=== PATIENT | female | born 2000 | race Caucasian/White ===

== ENCOUNTER → 2018-10-25 16:00 | Outpatient (CLI) | payer MEDICAID, SELFPAY ==
--- NOTE | 2018-10-25 16:07 | XR_ITS ---
XR foot LT min 3V HISTORY: ITS.REASON: LT FOOT PAIN ORDERING PHYSICIAN: Mj Marin MD PATIENT AGE: 18 years COMPARISON: None FINDINGS: No fracture or dislocation. No lytic or blastic change. There is normal mineralization.. The joint spaces are well-preserved. No significant degenerative/arthritic changes. No erosive changes evident. There is a small sclerotic focus involving the tuft of the distal phalanx medially at 4 mm and may be due to bone island IMPRESSION: No acute finding
== END ==
PROVIDERS: PCP Internal Medicine Adolescent Medicine; Visit Provider Internal Medicine Adolescent Medicine
DX: M79.672 Pain in left foot (principal)
CPT/HCPCS: 73630

== ENCOUNTER 2020-08-26 10:59 | Emergency (ER) | payer MEDICAID, SELFPAY ==
[2020-08-26 11:20] VITALS: BP 129/78; PULSE 108; RESP 19; TEMP 37.1; O2SAT 100; BMI 37.9
--- NOTE | 2020-08-26 12:00 | HMH.EDUTC ---
[facility] [place] Disposition Clinical Impression: Nasal congestion Disposition: Home, Self-Care Condition on Discharge: Good Instructions: DI for Nasal Congestion, Sore Throat Additional Instructions: *Monitor Temp, Over the counter Motrin or Tylenol as directed/as needed Tylenol every 4 hours and Motrin every 6 hours (as long as your family doctor has told you that you can take it) for fever or pain. and straight to ER if unable to lower temp less than 101.0 after medication given *Warm salt water gargles may help to soothe the throat *Throat Lozenges *Warm fluids like tea with honey may help to soothe the throat *Sleep elevated *Humidifier/Vaporizer *Flonase 2 sprays in each nostril daily but be aware that it may take 2-3 days before you notice improvement Your throat swab was sent for culture. Those results are typically sent to your primary care. Be sure to follow up in 2-3 days with your family doctor/primary care physician if no improvement so they can review those result and treat if necessary. If you don?t have a primary care doctor, I recommend you get one but in the mean time, you will have to return to a walk in clinic Follow up IMMEDIATELY for new or worsening symptoms or no Noticeable improvement over the next 48-72 hours. 911 for difficulty breathing or swallowing Prescriptions: Fluticasone Propionate [Flonase 50mcg nasal spray 16gm] 1 spr NS DAILY #1 bottle Transmission Status: Pending to [id number] Referrals: Mj Marin MD [Primary Care Provider] - As needed Time of Disposition: 12:48 Medical Decision Making - Primitivo Inquiry Pt receiving controlled substance: No Primitivo was queried for this patient: No Vital Signs: 08/26/20 11:20 Temperature 98.8 F Temperature Source Oral Pulse Rate [Right Brachial] 108 H Respiratory Rate 19 Blood Pressure [Right Arm] 129/78 Blood Pressure Mean [Right Arm] 95 Blood Pressure Source [Right Arm] Automatic Cuff Blood Pressure Position [Right Arm] Sitting 02 Sat by Pulse Oximetry 100 Oxygen Delivery Method Room Air - Lab Data Lab results reviewed: Yes: I reviewed the patient's lab results. [facility] [place] HPI - General Stated complaint: possible sinus infection Time Seen by Provider: 08/26/20 12:00 Mode of Arrival: Ambulatory Source of Information: Patient Limitations: No Limitations Description of Symptoms (Recalled from Triage Doc. by RN): PATIENT C/O SINUS PRESSURE AND HEADACHE SINCE THIS MORNING HEENT Symptoms (Recalled from RN notes): Yes Resp Symptoms (Recalled from RN notes): No Skin Symptoms (Recalled from RN notes): No MS Symptoms (Recalled from RN notes): No Functional Status (Recalled from RN notes): WNL - History of Present Illness Provider Complaint: Patient states that she has been having nasal congestion and has allergies States that for the last couple of days she has continued to have sinus congestion but this morning she is having some sinus pressure States that drainage from nose is clear and having sore scratchy throat - Related Data Home Medications Medication Instructions Recorded Confirmed Albuterol Sulfate [Albuterol 2 puff IH DAILYP PRN 08/26/20 08/26/20 Sulfate Hfa] Fexofenadine HCl [Yasmin 180 mg PO DAILY 08/26/20 08/26/20 Allergy] Montelukast Sodium [Singulair 10mg 10 mg PO PM 08/26/20 08/26/20 tablet] norgestimate-ethinyl estradioL 1 tab PO DAILY 08/26/20 08/26/20 [Tri-Sprintec Tablet] Previous Rx's Medication Instructions Recorded Fluticasone Propionate [Flonase 1 spr NS DAILY #1 bottle 08/26/20 50mcg nasal spray 16gm] Allergies Allergy/AdvReac Type Severity Reaction Status Date / Time ciprofloxacin Allergy Verified 08/26/20 11:40 - Worker's Comp Is this a Worker's Comp case?: No [facility] History - Hepatitis A Screen Drug use history?: No High risk sexual behaviors?: No History of sexually transmitted infection?: No Currently employed?: No Childcare worker?: No Do you have i
[2020-08-26 12:42] LABS: UTC Strep Screen (Rapid) Negative (Negative)
[2020-08-26 12:51] VITALS: BP 129/78; PULSE 108; RESP 19; TEMP 37.1; O2SAT 100
== END 2020-08-26 12:55 | disposition home or self-care (01) ==
PROVIDERS: Emergency Provider Nurse Practitioner; PCP Internal Medicine Adolescent Medicine
DX: R51.9 Headache, unspecified (principal); R09.81 Nasal congestion
CPT/HCPCS: 87880; 99202; G0463

== ENCOUNTER 2020-10-05 17:11 | Emergency (ER) | payer MEDICAID, SELFPAY ==
[2020-10-05 17:51] VITALS: BP 120/81; PULSE 89; RESP 18; TEMP 36.8; O2SAT 100; BMI 39.9
--- NOTE | 2020-10-05 17:53 | HMH.EDUTC ---
[facility] [place] Disposition Clinical Impression: Pharyngitis Qualifiers: Pharyngitis/tonsillitis etiology: unspecified etiology Qualified Code(s): J02.9 - Acute pharyngitis, unspecified Disposition: Home, Self-Care Condition on Discharge: Good Instructions: Strep Throat, DI for Strep Throat Additional Instructions: Drink plenty of fluids. Take tylenol or ibuprofen for pain or fever. Take the medications as directed. Follow up with your regular doctor. GO TO THE ER FOR ANY WORSENING SYMPTOMS Bad tableReferrals: Mj Marin MD [Primary Care Provider] - Forms: Work/School Release Time of Disposition: 17:55 Medical Decision Making - Medical Records Medical records reviewed: No: I reviewed the patient's medical records. - Primitivo Inquiry Pt receiving controlled substance: No Vital Signs: 10/05/20 17:51 10/05/20 18:33 Temperature 98.3 F 98 F Temperature Source Oral Pulse Rate 85 Pulse Rate [Right] 89 Respiratory Rate 18 16 Blood Pressure 120/85 Blood Pressure [Right Arm] 120/81 Blood Pressure Mean [Right Arm] 94 02 Sat by Pulse Oximetry 100 - Lab Data Lab results reviewed: Yes: I reviewed the patient's lab results. Lab Results 10/05/20 17:55: Strep Scn Rapid Clinic Negative Orders (Tests/Meds): ORDERS Category Date Time Status Strep Screen Confirmation Stat Micro 10/05/20 17:55 Received [facility] [place] HPI - General Stated complaint: SORE THROAT Time Seen by Provider: 10/05/20 17:53 - History of Present Illness Provider Complaint: She c/o sore throat for the past 2 days. She has also had some chilling, but no fever. She has a history of getting strep throat easily. She denies any covid exposure. - Related Data Home Medications Medication Instructions Recorded Confirmed Albuterol Sulfate [Albuterol 2 puff IH DAILYP PRN 08/26/20 08/26/20 Sulfate Hfa] Fexofenadine HCl [Yasmin 180 mg PO DAILY 08/26/20 08/26/20 Allergy] Montelukast Sodium [Singulair 10mg 10 mg PO PM 08/26/20 08/26/20 tablet] norgestimate-ethinyl estradioL 1 tab PO DAILY 08/26/20 08/26/20 [Tri-Sprintec Tablet] Previous Rx's Medication Instructions Recorded Fluticasone Propionate [Flonase 1 spr NS DAILY #1 bottle 08/26/20 50mcg nasal spray 16gm] Amoxicillin [Amoxicillin 500mg Tab] 500 mg PO TID 10 Days #30 tab 10/05/20 Brompheniramine/Pseudoephed/Dm 5 ml PO Q6HP PRN #240 syrup 10/05/20 [Bromfed Dm Cough Syrup] Allergies Allergy/AdvReac Type Severity Reaction Status Date / Time ciprofloxacin Allergy Verified 08/26/20 11:40 [facility] History - Hepatitis A Screen Attestation statement:: This patient has been screened for Hepatitis A risk factors. I have reviewed the patient's past medical history: Yes - Social History Alcohol Intake: never Occupational Status: other ROS Obtained: Yes All systems reviewed & no additional complaints - Constitutional Constitutional: Reports system reviewed and no additional complaints, except as docu - Eyes Eyes: Reports system reviewed and no additional complaints, except as docu - ENT Ears, Nose, Mouth, and Throat: Reports system reviewed and no additional complaints, except as docu - Cardiovascular Cardiovascular: Reports system reviewed and no additional complaints, except as docu - Respiratory Respiratory: Reports system reviewed and no additional complaints, except as docu - Gastrointestinal Gastrointestingal: Reports: system reviewed and no additional complaints, except as docu Physical Exam - General General appearance: alert, in no apparent distress - Head Head exam: atraumatic, normocephalic, normal inspection - Eye Eye exam: Present: normal appearance, PERRL, EOMI - ENT ENT exam: Present: mucous membranes moist, normal external ear exam - Expanded ENT Exam TM/Canal exam: Bilateral TM: erythema, bulging Mouth exam: Present: normal external inspection Teeth exam: Present: normal inspection Throa
[2020-10-05 18:07] LABS: UTC Strep Screen (Rapid) Negative (Negative)
[2020-10-05 18:33] VITALS: BP 120/85; PULSE 85; RESP 16; TEMP 36.6
== END 2020-10-05 18:33 | disposition home or self-care (01) ==
PROVIDERS: Emergency Provider Nurse Practitioner Family; PCP Internal Medicine Adolescent Medicine
DX: J02.9 Acute pharyngitis, unspecified (principal)
CPT/HCPCS: 87880; 99202; G0463